=== PATIENT | female | born 1995 | race African-American/Black ===

== ENCOUNTER 2021-03-31 23:10 | Inpatient (IN) ==
[2021-04-01] MEDS ORDERED: ONDANSETRON 4 MG/2 ML VIAL IV PRN ×2 (01:27→20:30)
[2021-04-01] MEDS ORDERED: LACTATED RINGERS 500 ML IV PRN (01:27)
[2021-04-01] MEDS ORDERED: MEPERIDINE 50 MG/1 ML VIAL IV PRN (01:27)
[2021-04-01] MEDS ORDERED: BUTORPHANOL 2 MG/ML VIAL IV PRN (01:27)
[2021-04-01 02:07] LABS: Basophils % 0.2 % (0.0-0.8); Eosinophils # 0.1 10*3/uL (0.0-0.87); Eosinophils % 0.6 % (0.00-10.9); Hematocrit 32.8 VOL% (35.7-47.0); Hemoglobin 10.8 GM/DL (12.0-16.0); Immature Granulocytes % 1.7 %; Immature Granulocytes Absolute 0.17 #; Lymphocytes # 2.5 10*3/uL (1.4-4.0); Lymphocytes % 25.2 % (21.3-54.2); Mean Corpuscular HGB Conc 32.9 GM/DL (32-36); Mean Corpuscular Volume 91.1 FL (87-102); Mean Platelet Volume 11.4 FL (9.6-12.0); Neutrophils % 63.3 % (38.7-73.9); Platelet Count 150 T/CUMM (130-400); Red Cell Distribution Width 14.1 % (9.3-17.3)
[2021-04-01 02:40] LABS: Alanine Aminotransferase 14 U/L (13-56); Albumin 2.7 G/DL (3.4-5.0); Alkaline Phosphatase 98 U/L (45-117); Aspartate Amino Transferase 15 U/L (0-37); Bilirubin,Total < 0.39 MG/DL (0.20-1.00); Blood Urea Nitrogen 11 MG/DL (7-18); Calcium 8.2 MG/DL (8.5-10.1); Carbon Dioxide 24 MMOL/L (21-32); Estimated Glom Filtration Rate 122 ML/MIN; Glucose 75 MG/DL (74-106); Osmolality,Calculated 274.5 MOS/KG (273-304); Potassium 3.6 MMOL/L (3.5-5.1); Sodium 139 MMOL/L (136-145); Total Protein 6.3 G/DL (6.4-8.2)
[2021-04-01] MEDS ORDERED: GLUCAGON 1 MG VIAL IM PRN ×2 (06:05→08:41)
[2021-04-01] MEDS ORDERED: DEXTROSE 50% 25 GM/50 ML VIAL IV PRN ×2 (06:05→08:41)
[2021-04-01] MEDS ORDERED: AMPICILLIN INJ 2,000 MG in SODIUM CHLORIDE 0.9% 100 ML IV ONE (08:02)
[2021-04-01] MEDS: LACTATED RINGERS 1,000 ML IV SCH ×2 (08:24→15:02)
[2021-04-01] MEDS: INSULIN REGULAR 100 UNIT/ML SUBCUT SCH ×4 (10:33→23:21)
[2021-04-01] MEDS ORDERED: TERBUTALINE 1 MG/1 ML VIAL SUBCUT ONE (11:36)
[2021-04-01] MEDS ORDERED: INSULIN REGULAR 100 UNIT/ML SUBCUT SCH (12:00)
[2021-04-01] MEDS: AMPICILLIN INJ 1,000 MG in SODIUM CHLORIDE 0.9% 100 ML IV SCH ×2 (12:30→16:19)
[2021-04-01] MEDS ORDERED: OXYTOCIN/LR 20 UNIT/1,000 ML BAG IV SCH (17:00)
[2021-04-01] MEDS ORDERED: FAMOTIDINE 20 MG/2 ML VIAL IV ONE (18:30)
[2021-04-01] MEDS ORDERED: CITRIC ACID/SODIUM CITRATE 30 ML UDCUP PO ONE (18:30)
[2021-04-01] MEDS ORDERED: OXYTOCIN/LR 20 UNIT/1,000 ML BAG IV ONE ×2 (18:34→20:30)
[2021-04-01] MEDS ORDERED: TRANEXAMIC ACID 1,000 MG/10 ML VIAL ONE (18:34)
[2021-04-01] MEDS ORDERED: miSOPROStoL 200 MCG TABLET ONE (18:34)
[2021-04-01] MEDS ORDERED: METHYLERGONOVINE 0.2 MG/1 ML AMP ONE (18:34)
[2021-04-01] MEDS ORDERED: CARBOPROST TROMETHAMINE 250 MCG/ML AMP IM ONE (18:35)
[2021-04-01] MEDS ORDERED: SODIUM CHLORIDE 0.9% 0 ML IV ONE (18:35)
[2021-04-01] MEDS ORDERED: BUPIVACAINE SPINAL 0.75% 2 ML AMP SPINAL ONE (18:42)
[2021-04-01] MEDS ORDERED: ONDANSETRON 4 MG/2 ML VIAL ONE (19:56)
[2021-04-01] MEDS ORDERED: PHENYLEPHRINE 1 MG/10 ML SYRINGE IV ONE (19:56)
[2021-04-01] MEDS ORDERED: ACETAMINOPHEN INJ 1,000 MG/100 ML VIAL IV ONE (19:56)
[2021-04-01] MEDS ORDERED: ACETAMINOPHEN 325 MG TABLET PO PRN (20:30)
[2021-04-01] MEDS ORDERED: RHO(D) IMMUNE GLOBULIN 300 MCG SYRINGE IM ONE (20:30)
[2021-04-01] MEDS ORDERED: LACTATED RINGERS 1,000 ML IV SCH (20:30)
[2021-04-01] MEDS ORDERED: SIMETHICONE CHEW 80 MG TABLET PO PRN (20:30)
[2021-04-01] MEDS ORDERED: oxyCODONE/ACETAMINOPHEN 5-325 MG TABLET PO PRN (20:32)
[2021-04-01 20:57] LABS: Cord Venous Blood HCO3 12.4 MMOL/L; Cord Venous Blood PCO2 96.7 MMHG; Cord Venous Blood PO2 < 17
[2021-04-01 21:48] LABS: Bilirubin,Urine Negative (Negative); Blood, Urine Negative (Negative); Glucose,Urine (UA) Negative (Negative); Ketones,Urine 20 mg/dL (Negative); Mucus,Urine Occasional /LPF (Occasional); Nitrite,Urine Negative (Negative); Protein,Urine Negative; RBC,Urine <1 /HPF (0-4); Squamous Epithelial Cell,Urine Occasional /HPF (0-10); Urine Appearance CLEAR (Clear); Urine Color Yellow (Yellow); Urine Specific Gravity 1.013 (1.001-1.035); Urine Urobilinogen < 2.0 EU/DL (0.2-1.0)
[2021-04-02] MEDS: oxyCODONE/ACETAMINOPHEN 5-325 MG TABLET PO PRN ×2 (01:15→16:55)
[2021-04-02] MEDS: IBUPROFEN 800 MG TABLET PO PRN (01:16)
[2021-04-02] MEDS ORDERED: ACETAMINOPHEN 500 MG TABLET PO PRN (02:00)
[2021-04-02 07:08] LABS: Basophils % 0.2 % (0.0-0.8); Eosinophils % 0.2 % (0.00-10.9); Hematocrit 32.1 VOL% (35.7-47.0); Hemoglobin 10.6 GM/DL (12.0-16.0); Immature Granulocytes % 1.8 %; Immature Granulocytes Absolute 0.25 #; Lymphocytes # 1.7 10*3/uL (1.4-4.0); Mean Platelet Volume 11.8 FL (9.6-12.0); Monocytes % 5.5 % (1.7-12.7); Neutrophils % 80.3 % (38.7-73.9); Platelet Count 132 T/CUMM (130-400); Red Blood Count 3.45 MC/CUMM (3.8-5.5); Red Cell Distribution Width 14.3 % (9.3-17.3); White Blood Count 14.1 T/CUMM (4-12)
[2021-04-02] MEDS: INSULIN REGULAR 100 UNIT/ML SUBCUT SCH ×3 (08:21→16:51)
[2021-04-02] MEDS: MULTIVITAMIN (PRENATAL) TABLET PO SCH (09:33)
[2021-04-02] MEDS: DOCUSATE SODIUM 100 MG CAPSULE PO SCH ×2 (09:34→20:45)
[2021-04-02] MEDS: MAGNESIUM HYDROXIDE SUSP 30 ML UDCUP PO PRN (13:55)
[2021-04-02] MEDS: metFORMIN 500 MG TABLET PO SCH (17:44)
[2021-04-03] MEDS: oxyCODONE/ACETAMINOPHEN 5-325 MG TABLET PO PRN (01:49)
[2021-04-03] MEDS: MAGNESIUM HYDROXIDE SUSP 30 ML UDCUP PO PRN ×2 (02:49→21:59)
[2021-04-03] MEDS: INSULIN REGULAR 100 UNIT/ML SUBCUT SCH ×5 (02:57→22:00)
[2021-04-03] MEDS: MULTIVITAMIN (PRENATAL) TABLET PO SCH (09:46)
[2021-04-03] MEDS: metFORMIN 500 MG TABLET PO SCH ×2 (09:46→17:01)
[2021-04-03] MEDS: DOCUSATE SODIUM 100 MG CAPSULE PO SCH ×2 (09:47→21:59)
[2021-04-03] MEDS: IBUPROFEN 800 MG TABLET PO PRN (16:10)
[2021-04-04] MEDS: INSULIN REGULAR 100 UNIT/ML SUBCUT SCH ×2 (02:00→15:59)
[2021-04-04] MEDS: DOCUSATE SODIUM 100 MG CAPSULE PO SCH (08:24)
[2021-04-04] MEDS: metFORMIN 500 MG TABLET PO SCH (08:24)
[2021-04-04] MEDS: MULTIVITAMIN (PRENATAL) TABLET PO SCH (08:24)
[2021-04-04] MEDS: IBUPROFEN 800 MG TABLET PO PRN (08:25)
[2021-04-04 14:40] VITALS: BP 150/83
== END 2021-04-04 14:20 | disposition home or self-care (01) | DRG 540 ==
LOC: N.LD 23:10 → N.OB 04-02 00:31
PROVIDERS: ADMIT Obstetrics & Gynecology; ATTEND Obstetrics & Gynecology
PROC: LDCSECT (ICD-10-PCS; 2021-04-01 19:00)